=== PATIENT | female | born 1980 | race Caucasian/White ===

== ENCOUNTER → 2016-05-12 | Outpatient (CLI) | payer MEDICAID ==
[~2016-05-12] MED LIST: ACID REFLUX PILL; ANTIVERT 25MG25 MG PO; CARAFATE 1GM1 G PO; COLACE 100100 MG/CAP PO; DESOGEN 0.15 MG1 TAB PO; DILAUDID 2MG TAB2 MG PO; MOTRIN 600600 MG/TAB PO; NEXIUM PO; NORCO 325 MG-51 TAB PO; NORCO 325 MG-7.1 TAB PO; PAXIL20 MG PO; PERCOCET 325 MG1 TA2 PO; PRENATAL; PRENATAL1 TA1 PO; PROBIOTIC-MAJOR PO; ZOFRAN ODT4 MG PO; ZOFRAN ODT8 MG PO
== END ==
LOC: COL.RAD 07:45
DX: K21.9 Gastro-esophageal reflux disease without esophagitis (principal); Z98.890 Other specified postprocedural states

== ENCOUNTER 2018-03-31 09:31 | Emergency (ER) | payer BC ==
[~2018-03-31] VITALS: Ht 160 cm; Wt 82.7 kg
[2018-03-31 09:33] VITALS: TEMP 98.2
[2018-03-31 09:54] LABS: BASO # 0.1 (0.0-0.2); BASO % 0.8 % (0.0-2.0); EOS # 0.2 (0.0-0.7); EOS % 2.4 % (0-4.0); GRAN # 3.5 (1.4-6.5); GRAN % 52.2 % (42.2-75.2); HEMATOCRIT 44.3 % (37.0-47.0); HEMOGLOBIN 14.8 g/dl (12.5-16.0); LYMPH # 2.2 (1.2-3.4); LYMPH % 32.6 % (20.0-51.0); MEAN CELL VOLUME 85 fl (80.0-100.0); MEAN CORPUSCULAR HEMOGLOBIN 28 pg (27.0-31.0); MEAN CORPUSCULAR HGB CONC 33 g/dl (33.0-37.0); MEAN PLATELET VOLUME 10.5 fl (7.4-10.4); MONO # 0.8 (0.1-0.6); MONO % 11.7 % (1.7-9.3); PLATELET COUNT 252 K/mm3 (130-400); RED BLOOD COUNT 5.21 M/mm3 (4.10-5.30); REDCELL DISTRIBUTION WIDTH-CV 12.6 % (11.5-14.5)
[2018-03-31 10:08] LABS: ALBUMIN 4.2 gm/dL (3.5-5.0); BILIRUBIN,TOTAL 0.4 mg/dL (0.0-1.0); C-REACTIVE PROTEIN 2.6 mg/dL (0.0-0.9); CALCIUM 9.7 mg/dL (8.4-10.2); CREATININE, serum 0.72 mg/dL (0.52-1.25); POTASSIUM 3.6 mmol/L (3.4-5.0); TOTAL PROTEIN 7.9 gm/dL (6.4-8.2)
[2018-03-31 10:11] LABS: COLLECTION METHOD CLEAN CATCH
[2018-03-31 10:18] LABS: MUCOUS Present /lpf; PH 6 (5-8); URINE APPEARANCE Clear; URINE BACTERIA None Seen /hpf; URINE BILIRUBIN Negative (NEGATIVE); URINE BLOOD Negative (NEGATIVE); URINE COLOR Yellow; URINE GLUCOSE Negative (NEGATIVE); URINE KETONE Negative (NEGATIVE); URINE LEUKOCYTE ESTERASE Negative (NEGATIVE); URINE NITRATE Negative (NEGATIVE); URINE PROTEIN(semi-quant) Negative (NEGATIVE); URINE RBC 0-2 /hpf; URINE UROBILINOGEN Negative (NEGATIVE)
[2018-03-31 10:28] LABS: HCG-QUALITATIVE URINE NEGATIVE
[2018-03-31 10:33] LABS: STREP SCREEN NEGATIVE
[2018-03-31] MEDS ORDERED: ZITHROMAX Z PA250 MG PO (11:11)
[2018-03-31 11:30] VITALS: BP 120/91; PULSE 72
== END 2018-03-31 11:25 | disposition home or self-care (01) ==
LOC: COL.ER 09:31
PROVIDERS: Family Medicine
DX: J20.9 Acute bronchitis, unspecified (principal); J45.909 Unspecified asthma, uncomplicated
CPT/HCPCS: J7030

== ENCOUNTER → 2019-01-24 | Outpatient (CLI) | payer BC ==
[~2019-01-24] MED LIST changes: +ZITHROMAX Z PA250 MG PO
== END ==
LOC: COL.RAD 09:33
DX: Z04.3 Encounter for examination and observation following other accident (principal); G44.52 New daily persistent headache (NDPH); W19.XXXA Unspecified fall, initial encounter

== ENCOUNTER 2021-05-23 17:56 | Emergency (ER) | payer BC ==
[~2021-05-23] VITALS: Ht 157.5 cm; Wt 89.1 kg
[2021-05-23 18:07] VITALS: TEMP 98.1
[2021-05-23 19:25] VITALS: BP 129/88; PULSE 83
== END 2021-05-23 19:25 | disposition home or self-care (01) ==
LOC: COL.ER 17:56
DX: S61.211A Laceration without foreign body of left index finger without damage to nail, initial encounter (principal); Z23 Encounter for immunization; W25.XXXA Contact with sharp glass, initial encounter

== ENCOUNTER → 2021-06-05 | Outpatient (CLI) | payer BC ==
[2021-06-05 11:02] VITALS: BP 126/87; PULSE 74; TEMP 98.1
== END ==
LOC: COL.ER 10:57
DX: Z48.02 Encounter for removal of sutures (principal); Z28.310 Unvaccinated for COVID-19

== ENCOUNTER → 2022-06-08 | Outpatient (CLI) | payer BC | LOC: MC.RAD 13:13 | DX: Z12.31 Encounter for screening mammogram for malignant neoplasm of breast (principal) ==